=== PATIENT | female | born 1950 | race Caucasian/White ===

== ENCOUNTER 2022-04-04 11:42 | Emergency (ER) | payer OTHER, BC ==
[2022-04-04 11:51] VITALS: BP 142/70; PULSE 58; RESP 16; TEMP 97.6; BMI 21.0
[2022-04-04] MEDS ORDERED: ACETAMINOPHEN 325 MG TABLET (FP) PO ONE (12:10)
[2022-04-04] MEDS ORDERED: ACETAMINOPHEN 325 MG TABLET (FP) ONE (12:14)
[2022-04-04] MEDS ORDERED: LIDOCAINE HCL 2% (50ML VIAL) SQ ONE (13:17)
[2022-04-04] MEDS ORDERED: LIDOCAINE HCL 2% (20ML MULTI-DOSE VIAL) ONE (13:19)
== END 2022-04-04 15:06 | disposition home or self-care (01) ==
LOC: FER 11:42
DX: S52.502A Unspecified fracture of the lower end of left radius, initial encounter for closed fracture (principal); W19.XXXA Unspecified fall, initial encounter
CPT/HCPCS: 73090-TC-LT-FY; 73110-TC-LT-FY; 73130-TC-LT-FY; 99284-25